=== PATIENT | female | born 1960 | race Caucasian/White ===

== ENCOUNTER → 2018-09-07 | Outpatient (CLI) | payer OTHER | LOC: BHSO 10:44 | DX: F33.41 Major depressive disorder, recurrent, in partial remission (principal) ==

== ENCOUNTER → 2018-10-14 | Outpatient (CLI) | payer OTHER | LOC: BHSO 15:25 | DX: F33.42 Major depressive disorder, recurrent, in full remission (principal) | CPT/HCPCS: G0463 ==

== ENCOUNTER → 2019-07-12 | Outpatient (CLI) | payer OTHER | LOC: BHSO 14:28 | DX: F33.42 Major depressive disorder, recurrent, in full remission (principal) | CPT/HCPCS: G0463 ==

== ENCOUNTER → 2020-01-10 | Outpatient (CLI) | payer OTHER | LOC: BHSO 13:51 | DX: F33.42 Major depressive disorder, recurrent, in full remission (principal) | CPT/HCPCS: G0463 ==

== ENCOUNTER 2020-09-27 09:04 | Emergency (ER) | payer OTHER ==
[~2020-09-27] VITALS: Ht 162.6 cm; Wt 87.7 kg
[2020-09-27 09:10] VITALS: BP 124/86; TEMP 97.7
[2020-09-27 11:07] VITALS: PULSE 89
== END 2020-09-27 11:07 | disposition home or self-care (01) ==
LOC: COL.ER 09:04
DX: R22.42 Localized swelling, mass and lump, left lower limb (principal); Z88.2 Allergy status to sulfonamides